=== PATIENT | male | born 1970 | race Caucasian/White ===

== ENCOUNTER 2025-04-12 08:53 | Outpatient (CLI) | payer OTHER, SELFPAY ==
[2025-04-12 09:23] LABS: Hematocrit 46.9 % (40.0-54.0); Hemoglobin 15.3 g/dL (14.0-18.0); Immature Granulocyte Percent A 0.3 % (0.0-0.0); Lymphocytes Absolute Auto 1.21 K/mm3 (1.10-4.50); Mean Corpuscular HGB Conc 32.6 g/dL (32-36); Mean Corpuscular Hemoglobin 30.7 pg (27.0-31.0); Mean Corpuscular Volume 94.2 fL (78.0-102.0); Nucleated Red Blood Cells Absolute Auto 0.00 K/mm3 (0.00-0.00); Nucleated Red Blood Cells Perc 0.0 % (0-0.0); Platelet Count Result 267 K/mm3 (150-420); Red Blood Count 4.98 M/mm3 (4.70-6.10); White Blood Count 6.7 K/mm3 (4.8-10.8)
[2025-04-12 10:10] LABS: Alanine Aminotransferase 35 U/L (6-50); Albumin Level 4.5 g/dL (3.5-5.1); Alkaline Phosphatase 68 U/L (38-126); Anion Gap 3 mmol/L (4-12); Aspartate Amino Transferase 39 U/L (17-59); Bilirubin,Total 0.7 mg/dL (0.2-1.3); Blood Urea Nitrogen 16 mg/dL (9-20); Calcium 9.0 mg/dL (8.4-10.2); Carbon Dioxide 29 mmol/L (22-30); Chloride 106 mmol/L (98-107); Cholesterol 198 mg/dL (0-200); Estimated Glomerular Filt Rate > 60; Glucose 110 mg/dL (65-110); HDL Direct 44 mg/dL; Osmolality Calculated 288 mOsm/kg (285-295); Potassium 5.2 mmol/L (3.4-5.0); Sodium 138 mmol/L (137-145); Total Protein 7.1 g/dL (6.3-8.2); Triglycerides 169 mg/dL (<150); Uric Acid 6.9 mg/dL (3.5-8.5)
[2025-04-12 11:10] LABS: Thyroid Stimulating Hormone Reflex 1.870 uIU/mL (0.465-4.68)
== END 2025-04-12 08:54 | disposition home or self-care (01) ==
LOC: CHSLAB 08:55
PROVIDERS: PCP Family Medicine; Visit Provider Family Medicine
DX: Z00.00 Encounter for general adult medical examination without abnormal findings (principal); M10.9 Gout, unspecified; E03.9 Hypothyroidism, unspecified
CPT/HCPCS: 36415; 80053; 80061; 84443; 84550; 85025

== ENCOUNTER 2025-06-11 07:56 | Outpatient (NON) | payer OTHER, SELFPAY ==
--- NOTE | 2025-06-11 | S_PTH ---
PATIENT: Ramin Desouza LOC: [facility]#:[id number] AGE/SX: 54/M ROOM: RE06/11/[address]: Konstantin Urbano DO : 1970 BED: DIS: 06/11/2025 SPEC #: [id number] RECD: 06/12/25 08:05 STATUS: FELICITAS REQ #: [id number] COBY: 06/11/25 00:[address]: Konstantin Urbano DEPT: [facility] Surgical RECD BY: Mone Young ENTERED: 06/12/25 08:05 SP TYPE: Surgical OTHR DR: Jr De DO Tissues: A - Colon Polypectomy Procedures: Hematoxylin and Eosin Stain Gross and Microscopic Level 4
== END 2025-06-11 07:57 | disposition home or self-care (01) ==
PROVIDERS: PCP Family Medicine; Visit Provider Surgery
DX: D12.5 Benign neoplasm of sigmoid colon (principal); Z00.00 Encounter for general adult medical examination without abnormal findings
CPT/HCPCS: 88305

== ENCOUNTER 2025-06-11 08:00 | Day surgery (SDC) | payer OTHER, SELFPAY ==
[2025-04-16 11:08] VITALS: BMI 28.6
[2025-05-31 09:15] VITALS: BMI 28.9
[2025-06-11 08:29] VITALS: BP 145/96; PULSE 97; RESP 16; TEMP 36.8; O2SAT 97
--- NOTE | 2025-06-11 09:07 | WPDANESEPPF ---
Anes - Initial Pre Proc Eval Procedure: Operation Date: 06/11/25 09:30 Proposed Procedures p Diagnostic Colonoscopy - Konstantin Urbano DO Date/Time: 06/11/25 09:07 Surgeon: Konstantin Urbano DO Pre Op Diagnosis: Melena Patient Data Age: 54 Gender: M Height: 1.75 m Weight: 87.7 kg Last Vital Signs Temp 98.3 F 06/11/25 08:29 Pulse 97 06/11/25 08:29 Resp 16 06/11/25 08:29 BP 145/96 H 06/11/25 08:29 Pulse Ox 97 06/11/25 08:29 O2 Del Method Room Air 06/11/25 08:29 Allergies Allergy/AdvReac Type Severity Reaction Status Date / Time cephalexin (Keflex) Allergy Intermediate Unknown Verified 06/11/25 08:28 Home Medications ?Medication ?Instructions ?Recorded ?Confirmed ?Type No Home Medications 04/12/25 06/11/25 History Patient hx anesthesia problems: none Family hx anesthesia problems: none Results Review: All pre-operative results and documents have been reviewed as part of the pre-operative evaluation. [facility] Social History Social History (Updated 04/12/25 @ 08:32 by Odessa Foster MA) Smoking status: Never smoker Alcohol intake: current Drinks per week: 8 Substance use: never Substance use type: does not use Do You Feel Safe in your Home?: Yes Lack of Transportation: No Lack of Food: Never True Current Housing: I Have Housing Concerned About Future Housing: No Difficulty Paying Gas/Electric Bills: No Difficulty Paying for Meds: No Currently Unemployed: No Living arrangements: with family Spiritual care concerns: No Anes - Eval Final PreProcedure Day of Procedure 06/11/25 09:07 Heart: regular rate and rhythm Lungs: clear to auscultation Airway: Mallampati scale class II Neurological: alert and oriented Last oral intake: >/= 8 hours ASA classification: II Anesthetic plan: proceed Anesthesia type and monitoring: monitored anesthesia care Results Review: All pre-operative results and documents have been reviewed as part of the pre-operative evaluation. Informed Consent: The patient's anesthetic plan and its attendant risks and benefits were discussed with the patient/family/POA. Questions were solicited and answers provided to the satisfaction of the patient/family/POA.
--- NOTE | 2025-06-11 09:27 | P.HP_ITS ---
H&P: HPI History of Present Illness Date/Time: 06/11/25 09:27 Chief Complaint: melena Narrative: this is a 54-year-old man who presents for colonoscopy. He has never had a colonoscopy before. He has noted some blood in his stool. He denied any abdominal pain. Denies family history of colon cancer. Review of Systems Review of Systems: All systems reviewed & are unremarkable except as noted in HPI and below Constitutional: Constitutional: Denies chills, Denies fever(s), Denies headache(s) and Denies weight loss Eyes: Eyes: Denies change in vision ENT: Denies dizziness, Denies headache(s), Denies neck mass and Denies throat swelling Cardiovascular: Cardiovascular: Denies chest pain, Denies lightheadedness and Denies dyspnea Respiratory: Respiratory: Denies cough, Denies dyspnea and Denies wheezing Gastrointestinal: Gastrointestinal: Denies abdominal pain, Denies change in bowel habits, Denies nausea and Denies vomiting Genitourinary: Genitourinary: Denies hematuria and Denies dysuria Musculoskeletal: Musculoskeletal: Reports as per HPI Integumentary/Breasts: Skin/Breast: Reports as per HPI Neurologic: Denies dizziness and Denies headache(s) Allergic/Immunologic: Allergic/Immunologic: Denies throat swelling and Denies wheezing [facility] Social History Social History (Updated 04/12/25 @ 08:32 by Odessa Foster MA) Smoking status: Never smoker Alcohol intake: current Drinks per week: 8 Substance use: never Substance use type: does not use Do You Feel Safe in your Home?: Yes Lack of Transportation: No Lack of Food: Never True Current Housing: I Have Housing Concerned About Future Housing: No Difficulty Paying Gas/Electric Bills: No Difficulty Paying for Meds: No Currently Unemployed: No Living arrangements: with family Spiritual care concerns: No Meds Home Medications and Allergies Home Medications ?Medication ?Instructions ?Recorded ?Confirmed ?Type No Home Medications 04/12/25 06/11/25 H istory Allergies Allergy/AdvReac Type Severity Reaction Status Date / Time cephalexin (Keflex) Allergy Intermediate Unknown Verified 06/11/25 08:28 Vital Signs Vital Signs - 24 hr 06/11/25 08:29 Temperature 98.3 F Pulse Rate 97 Respiratory Rate 16 Blood Pressure 145/96 H Pulse Oximetry 97 Oxygen Delivery Room Air Exam Const: General: no acute distress and alert Orientation/consciousness: patient oriented x3 HENMT: Head: normocephalic and atraumatic Ears: hearing grossly normal bilaterally Face/Nose/Sinus: Normal nares present Mouth: Yes Normal oral and palatal mucosa present Eyes: Periorbital: periorbital findings normal Sclera: sclerae normal EOM: EOMs intact bilaterally Neck: Neck: normal visual inspection, no lymphadenopathy and trachea midline Chest: Chest palpation & inspection: normal inspection of the chest Resp: Effort & Inspection: normal respiratory effort Auscultation: clear to auscultation bilaterally Cardio: Jugular venous distension: no JVD Rate: regular rate Rhythm: regular rhythm Heart sounds: S1 normal heart sound present and S2 normal heart sound present Peripheral pulses: Peripheral pulses 2+ throughout GI: Inspection: normal to inspection GI Palp: Yes Soft to palpation, No Tenderness to palpation present (GI), No Guarding due to palpation present (GI) and No Rebound tenderness present Percussion: Yes normal to percussion Auscultation: normal bowel sounds : General: Yes no CVA tenderness Back/Spine/Pelvis: Back: no CVA tenderness Neuro: General: patient oriented x3, no focal motor deficits and CN's II-XI intact bilaterally Cognition (Neuro): normal cognition Speech: normal speech Motor exam (neuro): 5/5 motor strength present throughout Extrem: General: capillary refill normal and no clubbing, cyanosis or edema Assessment and Plan Assessment and plan (1) Hematochezia: Code(s): K92.1 - Melena Status: Acute Assessment and Plan: I have recommended colonoscopy. I have discussed the procedure, risks, benefits, and alternatives. Questions were answered. Patient is agreeable to proceed.
--- NOTE | 2025-06-11 09:37 | WPDANESPN ---
Anes - Prog Note Post-Op Date/Time: 06/11/25 09:37 Vital Signs: Last Vital Signs Temp 98.3 F 06/11/25 08:29 Pulse 97 06/11/25 08:29 Resp 16 06/11/25 08:29 BP 145/96 H 06/11/25 08:29 Pulse Ox 97 06/11/25 08:29 O2 Del Method Room Air 06/11/25 08:29 Pain Score (VAS): no Patient Feedback: Patient satisfied with anesthetic care.
[2025-06-11 10:00] VITALS: BP 103/72; PULSE 96; RESP 16; O2SAT 98
[2025-06-11 10:10] VITALS: BP 110/89; PULSE 95; RESP 20; O2SAT 96
[2025-06-11 10:20] VITALS: BP 125/92; PULSE 87; RESP 20; O2SAT 99
== END 2025-06-11 10:29 | disposition home or self-care (01) ==
PROVIDERS: PCP Family Medicine; Visit Provider Surgery
PROC: 0DJD8ZZ Inspection of Lower Intestinal Tract, Via Natural or Artificial Opening Endoscopic (ICD-10-PCS; CPT 45378; principal; 2025-06-11 09:30)
DX: K92.1 Melena (principal); D12.5 Benign neoplasm of sigmoid colon; K57.30 Diverticulosis of large intestine without perforation or abscess without bleeding
CPT/HCPCS: 45385